=== PATIENT | male | born 1990 | race Caucasian/White ===

== ENCOUNTER 2017-07-24 13:55 | Emergency (ER) | payer SELFPAY | END 2017-07-24 14:00 | LOC: JD.ED 13:55 | DX: Z53.20 Procedure and treatment not carried out because of patient's decision for unspecified reasons (principal) ==

== ENCOUNTER 2017-07-31 03:33 | Emergency (ER) | payer MEDICAID ==
[2017-07-31] MEDS ORDERED: Doxycycline 100 MG Cap PO ONE (03:56)
--- NOTE | 2017-07-31 04:04 | EDM.PDOC ---
ED HPI GENERAL MEDICAL PROBLEM - General Chief Complaint: Lower Extremity Injury/Pain Stated Complaint: R KNEE PAIN Time Seen by Provider: 07/31/17 03:52 Source of Information: Reports: Patient, RN Notes Reviewed - History of Present Illness INITIAL COMMENTS - FREE TEXT/NARRATIVE: 27 year old male comes in with area of redness infection R thigh. this started out as a "pus pocket" which he squeezed a few days ago getting a small amt of pus out. However the area surrounding this has become much more erythematous, painful, no further drainage. No fever or chills. one other small area of follicululitis, skin otherwise clear. Right Knee Pain Score (Numeric/FACES): 6 - Related Data Allergies Allergy/AdvReac Type Severity Reaction Status Date / Time No Known Allergies Allergy Verified 07/31/17 03:40 Home Meds: Home Meds . [No Known Home Meds] 07/31/17 [History] Social & Family History - Family History Family Medical History: Noncontributory - Tobacco Use Smoking Status *Q: Current Every Day Smoker Years of Tobacco use: 4 Packs/Tins Daily: 0.5 - Caffeine Use Caffeine Use: Reports: Coffee - Recreational Drug Use Recreational Drug Use: No Review of Systems - Review of Systems Review Of Systems: See Below Constitutional: Denies: Chills, Fever Mouth/Throat: Reports: No Symptoms Respiratory: Reports: No Symptoms Cardiovascular: Reports: No Symptoms Musculoskeletal: Reports: Other (area of infection R lower leg) Skin: Reports: Erythema (RLE) Neurological: Reports: No Symptoms ED EXAM, GENERAL - Physical Exam Exam: See Below General Appearance: Alert, No Apparent Distress Throat/Mouth: Normal Inspection Head: No: Facial Swelling Neck: Supple Respiratory/Chest: No Respiratory Distress Extremities: Increased Warmth, Redness (area of increased erythema R lower distal thigh anterior, no crusting or drainage, no fluctuance) Skin Exam: Warm, Dry, Erythema (area of infection RLE) Course - Vital Signs Last Recorded V/S: Last Vital Signs Temp 97.9 F 07/31/17 03:36 Pulse 78 07/31/17 03:36 Resp 16 07/31/17 03:36 BP 140/84 07/31/17 03:36 Pulse Ox 99 07/31/17 03:36 - Orders/Labs/Meds Meds: Medications Discontinued Medications Generic Name Dose Route Start Last Admin Trade Name Jacobo PRN Reason Stop Dose Admin Doxycycline Hyclate 200 mg 07/31/17 03:56 07/31/17 04:03 Vibramycin PO 07/31/17 03:57 200 mg ONETIME ONE Administration Departure - Departure Time of Disposition: 04:10 Disposition: Home, Self-Care 01 Condition: Fair Clinical Impression: Cellulitis Qualifiers: Site of cellulitis: extremity Site of cellulitis of extremity: lower extremity Laterality: right Qualified Code(s): L03.115 - Cellulitis of right lower limb - Discharge Information Instructions: Cellulitis, Adult Referrals: PCP,None [Primary Care Provider] - Forms: ED Department Discharge Additional Instructions: Warm compresses 3-4 times daily, rest and elevate leg and knee as much as possible, doxycycline 200 mg twice daily for 5 days and then 100 mg daily for the following 5 days. If this does form a pus pocket you can open that with a sharp needle or razor blade to let that drain, do not squeeze it as that will drive the infection deeper and make it spread into the surrounding tissue. Follow-up clinic or return to ED if symptoms worsening in any way.
== END 2017-07-31 04:10 | disposition home or self-care (01) ==
LOC: JD.ED 03:33
DX: L03.115 Cellulitis of right lower limb (principal)
CPT/HCPCS: 99283; A9270